=== PATIENT | female | born 1990 | race Caucasian/White ===

== ENCOUNTER 2018-10-06 20:09 | Outpatient (CLI) | payer BC, MEDICAID ==
[~2018-10-06] VITALS: Ht 157.5 cm; Wt 70.0 kg
[~2018-10-06 20:09] MED LIST: PREN-93 PO
[2018-10-06 20:22] VITALS: BP 119/67; PULSE 80; RESP 18
[2018-10-06 20:23] VITALS: BMI 28.2
[2018-10-06] MEDS ORDERED: ACETAMINOPHEN 500 MG TAB PO STA (21:20)
[2018-10-06] MEDS ORDERED: TERBUTALINE 1 MG/ML INJ SC ONE (22:30)
[2018-10-07] MEDS ORDERED: TERBUTALINE 1 MG/ML INJ SC ONE (01:00)
[2018-10-07] MEDS ORDERED: LACTATED RINGER'S 1,000 ML IV ONE (02:00)
[2018-10-07] MEDS ORDERED: LACTATED RINGER'S 1,000 ML IV SCH (02:00)
[2018-10-07 03:01] VITALS: BMI 57.5
[2018-10-07 03:02] VITALS: Ht 157.5 cm; Wt 70.0 kg
--- NOTE | 2018-10-07 04:30 | TRIAGE ---
OB Triage Datetime Report Generated by CPN: 10/07/2018 04:30 Datetime: 10/07/2018 03:40 Labor Evaluation Frequency: X2 Monitor Mode: External Duration (sec)2399: 80 Quality: Mild Pattern: Normal: <= 5 Contractions in 10 Minutes Resting Tone [place]: Relaxed Heart Rate FHR Baseline Rate: 130 Monitor Mode: External [place] Variability: Moderate 6-25 bpm Accelerations: 15X15 Decelerations: None Category: Category I Pain Assessment Pain Scale: 5 Pain Presence: Intermittent Pain Type: Cramping Pain Location: Abdomen Pain Goal: 5 Datetime: 10/07/2018 02:40 Labor Evaluation Frequency: x3 Monitor Mode: External Duration (sec)2399: 40-120 Quality: Mild Pattern: Normal: <= 5 Contractions in 10 Minutes Resting Tone [place]: Relaxed Heart Rate FHR Baseline Rate: 130 Monitor Mode: External [place] Variability: Moderate 6-25 bpm Accelerations: 15X15 Decelerations: None Category: Category I Datetime: 10/07/2018 01:49 Vaginal Exam Membrane Status: Intact Datetime: 10/07/2018 01:40 Labor Evaluation Frequency: occas Monitor Mode: External Duration (sec)2399: 40-120 Quality: Mild Pattern: Normal: <= 5 Contractions in 10 Minutes Resting Tone [place]: Relaxed Heart Rate FHR Baseline Rate: 135 Monitor Mode: External [place] Variability: Moderate 6-25 bpm Accelerations: 15X15 Decelerations: None Category: Category I Pain Assessment Pain Scale: 6 Pain Presence: Intermittent Pain Type: Cramping Pain Location: Abdomen Pain Goal: 5 Datetime: 10/07/2018 00:40 Labor Evaluation Frequency: x2 Monitor Mode: External Duration (sec)2399: 30-70 Quality: Mild Pattern: Normal: <= 5 Contractions in 10 Minutes Resting [place]one [place]: Relaxed Heart Rate FHR Baseline Rate: 130 Monitor Mode: External [place] Variability: Moderate 6-25 bpm Accelerations: 15X15 Decelerations: None Category: Category I Pain Assessment Pain Scale: 3 Pain Presence: Intermittent Pain Type: Cramping Pain Location: Abdomen Pain Assessment Comments: states pain has improved but still feels some ucs q 15 min Datetime: 10/06/2018 23:40 Labor Evaluation Frequency: occas Monitor Mode: External Duration (sec)2399: 30-40 Quality: Mild Pattern: Normal: <= 5 Contractions in 10 Minutes Resting [place]one [place]: Relaxed Heart Rate FHR Baseline Rate: 130 Monitor Mode: External [place] Variability: Moderate 6-25 bpm Accelerations: 15X15 Decelerations: None Category: Category I Datetime: 10/06/2018 22:40 Labor Evaluation Frequency: IRREG Monitor Mode: External Duration (sec)2399: 40-90 Quality: Mild Pattern: Normal: <= 5 Contractions in 10 Minutes Resting Tone [place]: Relaxed Heart Rate FHR Baseline Rate: 145 Monitor Mode: External [place] Variability: Moderate 6-25 bpm Accelerations: 15X15 Decelerations: None Category: Category I Pain Assessment Pain Scale: 6 Pain Presence: Intermittent Pain Type: Cramping Pain Location: Abdomen Pain Goal: 5 Datetime: 10/06/2018 21:40 Labor Evaluation Frequency: OCCAS Monitor Mode: External Duration (sec)2399: 30-40 Quality: Mild Pattern: Normal: <= 5 Contractions in 10 Minutes Resting [place]one [place]: Relaxed Heart Rate FHR Baseline Rate: 140 Monitor Mode: External [place] Variability: Moderate 6-25 bpm Accelerations: 15X15 Decelerations: None Category: Category I Datetime: 10/06/2018 20:30 Comments: U/S AT BEDSIDE Datetime: 10/06/2018 20:29 Labor Evaluation Frequency: 0 Monitor Mode: External Resting [place]one [place]: Relaxed Heart Rate FHR Baseline Rate: 145 Monitor Mode: External [place] Variability: Moderate 6-25 bpm Accelerations: 15X15 Decelerations: None Category: Category I Datetime: 10/06/2018 20:23 EGA: 28.1 Datetime: 10/06/2018 20:19 Assessment Type: Triage Maternal Assessment Level of Consciousness: Keenly Alert, Responsive DTR's/Clonus: DTRs 2+; No Clonus Headache: Denies Blurred Vision: No Respiratory Effort: Unlabored; Regular Rhythm; Equal Expansion Breath Sounds, Left: Clear and Equal Breath Sounds, Right: Clear and Equal Nausea/Vomiting: Denies RUQ Epigastric Pain: Denies Lower Extremities Edema: None Degree: None Upper Extremities Edema: None Degree: None Facial Edema: None Fall Risk Assessment History of Falling: (0) No Secondary Diagnosis: (0) No Ambulatory Aid: (0) Bedrest/Nurse Assist IV Therapy: (0) No Gait: (0) Normal/Bedrest/Immobile Mental Status: (0) Oriented to Own Ability Fall Score: 0 Fall Risk Score Definition: No Risk: No action required Datetime: 10/06/2018 20:18 Time of Arrival: 10/06/2018 20:00 Arrived By: Wheelchair Arrived From: Home Chief Complaint: ucs Movement: Present Contractions: Irregular Contractions: 5-15 min Rupture of Membranes: Denies Vaginal Bleeding: None Vaginal Discharge: Denies Recent Sexual Intercouse: Denies Abdominal Trauma: Not Applicable Patient Complaints: Contractions Time Provider Notified: 10/06/2018 20:20 Provider Notified: ARDALAN Datetime: 10/06/2018 20:17 Maternal Assessment Level of Consciousness: Keenly Alert, Responsive DTR's/Clonus: DTRs 2+ Headache: Denies Blurred Vision: No Nausea/Vomiting: Denies RUQ Epigastric Pain: Denies Facial Edema: None Pain Assessment Pain Scale: 7 Pain Presence: Intermittent Pain Type: Cramping Pain Location: Abdomen Pain Goal: 5 Pain Relief Measures: Comfort Measures Pain Assessment Comments: STATES PAIN IS TOLERABLE
--- NOTE | 2018-10-07 04:42 | TRIAGE ---
OB Triage Datetime Report Generated by CPN: 10/07/2018 04:42 Datetime: 10/07/2018 04:31 Frequency: X1 Monitor Mode: External Duration (sec)2399: 80 Quality: Mild Pattern: Normal: <= 5 Contractions in 10 Minutes Resting Tone [place]: Relaxed FHR Baseline Rate: 135 Monitor Mode: External [place] Variability: Moderate 6-25 bpm Accelerations: 15X15 Decelerations: None Category: Category I Pain Scale: 3 Pain Presence: Intermittent Pain Type: Cramping Pain Location: Abdomen Pain Goal: 3 Datetime: 10/06/2018 20:23 EGA: 28.1 Datetime: 10/06/2018 20:19 Fall Score: 0 Fall Risk Score Definition: No Risk: No action required
--- NOTE | 2018-10-07 04:49 | TRIAGE ---
OB Triage Datetime Report Generated by CPN: 10/07/2018 04:49 Datetime: 10/06/2018 20:18 Time Contractions Began: 10/06/2018 07:00 Initial Plan: NST, CALL MD FOR ORDERS
--- NOTE | 2018-10-07 11:16 | PN ---
Triage Information Date/Time Late entry note for exam done in October 06, 2018 Reason for visit: Uterine contractions Weeks of Gestation 28 weeks and 1 day /Para 2 para 0 Diabetes: none Hypertention: none Additional information 28-year-old G2, P0 with IUP at 28 weeks and 1 day recently arrived from [facility] presented to triage with complaint of uterine contractions. She had 2 visits with her OB clinic in [place]. The first visit in early and the second visit today. Size appears to be less than dates as well. Patient denies any leaking of fluid, vaginal bleeding or decreased movement. No records or labs are available. Patient noted to have frequent contraction initially when arrived to triage. Objective Vital Signs Date Temp Pulse Resp B/P (MAP) Pulse Ox O2 O2 Flow FiO2 Time Delivery Rate 10/06/18 97.9 80 18 119/67 Room Air 20:22 (84) Intake and Output 10/06/18 10/06/18 10/07/18 1515:00 23:00 07:00 IntakeIntake Total 1150 ml OutputOutput Total 800 ml BalanceBalance 350 ml Heart Rate: 130's Heart Rate Comments Category 1 and appropriate gestational age Contractions irregular noted Patient noticed to have contractions.Denies any LOF or vaginal bleeding. Denies any dysuria, Urinalysis is negative Results/Medications Result Diagram: 10/06/182141 Results 24 hrs Laboratory Tests Test 10/06/18 20:20 10/06/18 21:42 Urine Color YELLOW Urine Clarity SLIGHTLY CLOUDY A Urine pH 6.0 Urine Specific [place] 1.028 Urine Ketones NEGATIVE Urine Nitrite NEGATIVE Urine Bilirubin NEGATIVE Urine Urobilinogen NEGATIVE Urine Leukocyte Esterase 1+ H Urine Microscopic RBC 1 Urine Microscopic WBC 5 Urine Squamous Epithelial Cells FEW Urine Bacteria FEW A Urine Mucus FEW A Urine Hemoglobin NEGATIVE Urine Glucose NEGATIVE Urine Total Protein NEGATIVE White Blood Count 6.3 Red Blood Count 4.01 L Hemoglobin 11.0 L Hematocrit 33.0 L Mean Corpuscular Volume 82.3 Mean Corpuscular Hemoglobin 27.4 L Mean Corpuscular Hemoglobin Concent 33.3 Red Cell Distribution Width 13.4 Platelet Count 237 Mean Platelet Volume 10.9 H Immature Granulocytes % 0.600 H Neutrophils % 64.5 Lymphocytes % 24.9 Monocytes % 8.8 Eosinophils % 1.0 Basophils % 0.2 Nucleated Red Blood Cells % 0.0 Immature Granulocytes # 0.040 H Neutrophils # 4.1 Lymphocytes # 1.6 Monocytes # 0.6 Eosinophils # 0.1 Basophils # 0.0 Nucleated Red Blood Cells # 0.0 Hemoglobin A1c 5.1 Hepatitis B Surface Antigen NEGATIVE Hepatitis C Antibody NEGATIVE Imaging Results PROCEDURE: Limited obstetric ultrasound with endovaginal scanning CLINICAL INDICATION: labor. Assess cervical length and patency TECHNIQUE: Endovaginal scanning of the cervix was performed COMPARISON: 10/06/2018 FINDINGS: The cervix measures 3.4 cm in length. The visualized portion is closed. IMPRESSION: Closed cervix measuring 3.4 cm in length. Disposition: Discharge Assessment/Plan IUP at 28 weeks and 1 day contraction, likely related to dehydration. Resolved after hydration and to dose of terbutaline. Cervical length remained stable after repeating post hydration and terbutaline. Patient feels improvement. She discharged home in stable condition. labs was drawn. OB ultrasound for growth done. Estimated weight 85 percentile. Patient was advised to have a follow-up within 24 to 48 hours with primary OB office or sooner as needed. Strict labor precautions kick count and follow-up with OB office discussed with patient. All questions were answered to patient's best satisfaction patient verbalized understanding. MO CORRIGAN MD Oct 07, 2018 10:54
== END 2018-10-07 04:35 | disposition home or self-care (01) ==
LOC: OBT 20:09 → L-D 20:12 → OBT 10-07 04:35
PROVIDERS: ATTEND Obstetrics & Gynecology
DX: O60.03 Preterm labor without delivery, third trimester (principal); Z3A.28 28 weeks gestation of pregnancy
CPT/HCPCS: 36415; 76815; 76817; 76818; 81001; 83036; 85025; 86592; 86762; 86803; 86850; 86900; 86901; 87086; 87340; 87591; 96360; 96361; 96372; J3105; J7120; Z7500; Z7610; G0463

== ENCOUNTER 2018-10-09 12:03 | Outpatient (CLI) | payer BC ==
[~2018-10-09] VITALS: Ht 162.6 cm; Wt 70.7 kg
[2018-10-09 12:53] VITALS: Ht 162.6 cm; Wt 70.7 kg
[2018-10-09 12:54] VITALS: BP 111/69; PULSE 93; RESP 18
[2018-10-09] MEDS: LACTATED RINGER'S 1,000 ML IV SCH ×2 (13:33→18:44)
--- NOTE | 2018-10-09 16:25 | PN ---
Triage Information Date/Time Reason for visit: Nausea vomiting and diarrhea and occasional contractions Weeks of Gestation Patient is a 28-year-old 3 para 2 at 28 weeks and 4 days of gestation with estimated date of delivery December 28, 2018 Patient is here with chief complaint of nausea and vomiting and watery and foul- smelling diarrhea for the last 3 days She also reports occasional contractions Patient reports positive movement, denies vaginal bleeding or leaking fluid Patient reports she just returned from [facility] 5 days ago While she was in [facility] she had scabies and was hospitalized for a kidney infection which she received antibiotics /Para 3 para 2 Diabetes: none Hypertention: none Objective Vital Signs Date Temp Pulse Resp B/P (MAP) Pulse Ox O2 O2 Flow FiO2 Time Delivery Rate 10/09/18 98.3 93 18 111/69 12:54 (83) Heart Rate: 140's Heart Rate Comments heart rate tracing category 1 Contractions: >10 Minutes Apart Results/Medications Result Diagram: 10/09/18 1402 10/09/18 1402 Results 24 hrs Laboratory Tests Test 10/09/18 13:45 10/09/18 14:02 Urine Color TK Urine Clarity SLIGHTLY CLOUDY A Urine pH 5.0 Urine Specific [place] 1.031 H Urine Ketones NEGATIVE Urine Nitrite NEGATIVE Urine Bilirubin NEGATIVE Urine Urobilinogen NEGATIVE Urine Leukocyte Esterase TRACE A Urine Microscopic RBC 0 Urine Microscopic WBC 3 Urine Squamous Epithelial Cells MODERATE Urine Amorphous Crystals FEW A Urine Bacteria FEW A Urine Mucus MODERATE Urine Hemoglobin NEGATIVE Urine Glucose NEGATIVE Urine Total Protein 1+ H White Blood Count 8.7 # Red Blood Count 4.35 Hemoglobin 11.8 L Hematocrit 36.1 L Mean Corpuscular Volume 83.0 Mean Corpuscular Hemoglobin 27.1 L Mean Corpuscular Hemoglobin Concent 32.7 Red Cell Distribution Width 13.3 Platelet Count 226 Mean Platelet Volume 10.8 H Immature Granulocytes % 0.200 Neutrophils % 80.3 H Lymphocytes % 13.6 L Monocytes % 5.6 Eosinophils % 0.2 Basophils % 0.1 Nucleated Red Blood Cells % 0.0 Immature Granulocytes # 0.020 Neutrophils # 7.0 Lymphocytes # 1.2 Monocytes # 0.5 Eosinophils # 0.0 Basophils # 0.0 Nucleated Red Blood Cells # 0.0 Sodium Level 134 L Potassium Level 4.0 Chloride Level 104 Carbon Dioxide Level 22 Anion Gap 8 Blood Urea Nitrogen 9 Creatinine 0.45 Est Glomerular Filtrat Rate mL/min > 60 Glucose Level 91 Calcium Level 9.7 Total Bilirubin 0.4 Direct Bilirubin 0.00 Indirect Bilirubin 0.4 Aspartate Amino Transf (AST/SGOT) 19 Alanine Aminotransferase (ALT/SGPT) 22 Alkaline Phosphatase 103 Total Protein 7.4 Albumin 3.8 Globulin 3.60 H Albumin/Globulin Ratio 1.05 Medications Current Medications Lactated Ringer's 1,000 ml @ 125 mls/hr Q8H IV Last administered on 10/09/18at 13:33; Admin Dose 125 MLS/HR; Start 10/09/18 at 13:30 Imaging Results PROCEDURE: US OB biophysical profile. Ultrasound cervix CLINICAL INDICATION: decreased movements, labor TECHNIQUE: Multiple sonographic images of the pelvis were obtained. In addition, transvaginal images of the cervix were obtained. The images were reviewed on a PACS workstation. COMPARISON: 10/07/18 FINDINGS: The cervix measures 3.6 cm in length. There is a single live intrauterine gestation. Cardiac activity is present with 140 beats per minute. There is a vertex presentation. The placenta is posterior. There is no evidence of placental abruption. DEMAR = 12 cm. Biophysical profile: movement 2/2 tone 2/2. breathing 2/2 DEMAR 2/2 Total 10/07 RPTAT: AA . IMPRESSION: Normal biophysical profile. Cervix measures 3.6 cm in length. .Bryant Slaughter MD, MD Date Time Electronically viewed and signed by .Bryant Slaughter MD, MD on 10/09/2018 13:58 .S/ CC: ROXANN KILLIAN MD [id number] PROCEDURE: US Abdomen and retroperitoneal complete. CLINICAL INDICATION: Flank pain TECHNIQUE: Multiple real-time images were acquired of the patient's abdomen and retroperitoneum utilizing a high resolution transducer. COMPARISON: None FINDINGS: The liver demonstrates increased echogenicity. The liver is normal in size and no focal solid lesions are seen. The portal vein is patent with normal direction of flow. No intrahepatic biliary dilatation is seen. The liver measures 17.9 cm in length. The patient is status post cholecystectomy. The common bile duct measures 3 mm in maximal dimension. The pancreas is not well seen due to overlying bowel gas. The spleen was not imaged by the technologist. No free fluid is identified. The kidneys are normal in size, and demonstrate normal cortical echogenicity and cortical thickness. The right kidney measures 12 cm. The left kidney measures 12.1 cm. There is no evidence of hydronephrosis. There are no kidney stones. The urinary bladder is normal. RPTAT: AA IMPRESSION: Fatty infiltration of the liver. Status post cholecystectomy. No evidence of hydronephrosis. Spleen not included in the study. .Bryant Slaughter MD, MD Date Time Electronically viewed and signed by .Bryant Slaughter MD, on 10/09/2018 16:30 .S/ CC: ROXANN KILLIAN MD [id number] Disposition: Discharge Assessment/Plan Labs within normal limits Abdominal ultrasound within normal limits Urine culture was sent Stool was sent for culture and to rule out parasites Patient received IV fluid hydration Patient received terbutaline x1 dose Prescription for Flagyl was given kick count instructions were given Labor precautions were given Patient was instructed to follow-up with primary care physician and her [facility]TER in 1 to 2 days ROXANN KILLIAN MD Oct 09, 2018 16:25
[2018-10-09] MEDS ORDERED: TERBUTALINE 1 MG/ML INJ SC ONE (18:30)
--- NOTE | 2018-10-09 20:01 | PN ---
Date/Time of Note Date/Time of Note DATE: 10/09/18 TIME: 19:59 OB Subjective Subjective Subjective 28 year old IUP 28 06/06 with nausea, vomithig recieved IV hydartion tollerated clear liquis diet no more loose stool not feeling contractionts CL 3.6 will d/c home with percationts 1 week outpatient follow up ABHI ZUÑIGA MD Oct 09, 2018 20:01
--- NOTE | 2018-10-09 20:51 | TRIAGE ---
OB Triage Datetime Report Generated by CPN: 10/09/2018 20:50 Datetime: 10/09/2018 19:53 Stage of : OB Triage Labor Evaluation Frequency: X1 Monitor Mode: External Duration (sec)2399: 60 Pattern: Normal: <= 5 Contractions in 10 Minutes Resting Tone [place]: Relaxed Heart Rate FHR Baseline Rate: 160 Monitor Mode: External [place] Variability: Moderate 6-25 bpm Accelerations: 15X15 Decelerations: None Category: Category I Pain Assessment Pain Scale: 0 Pain Type: N/A Datetime: 10/09/2018 19:14 Stage of : OB Triage Labor Evaluation Frequency: x0 Monitor Mode: External Duration (sec)2399: x0 Pattern: Normal: <= 5 Contractions in 10 Minutes Resting Tone [place]: Relaxed Heart Rate FHR Baseline Rate: 150 Monitor Mode: External [place] Variability: Moderate 6-25 bpm Accelerations: 15X15 Decelerations: Variable Category: Category II Comments: appropriate for gestational age Datetime: 10/09/2018 18:16 Stage of : OB Triage Datetime: 10/09/2018 17:56 Labor Evaluation Frequency: 4-6 Monitor Mode: External Duration (sec)2399: 40-60 Quality: Mild Pattern: Normal: <= 5 Contractions in 10 Minutes Resting Tone [place]: Relaxed Heart Rate FHR Baseline Rate: 150 Monitor Mode: External [place] Variability: Moderate 6-25 bpm Accelerations: 10X10 Decelerations: None Category: Category I Pain Assessment Pain Scale: 1 Pain Presence: Intermittent Pain Type: Cramping Pain Location: Perineum Pain Goal: 3 Pain Relief Measures: Comfort Measures Datetime: 10/09/2018 17:05 Labor Evaluation Frequency: 0 Monitor Mode: External Pattern: Normal: <= 5 Contractions in 10 Minutes Resting Tone [place]: Relaxed Heart Rate FHR Baseline Rate: 145 Monitor Mode: External [place] Variability: Moderate 6-25 bpm Accelerations: 10X10 Decelerations: None Category: Category I Pain Assessment Pain Scale: 5 Pain Presence: Constant Pain Type: Cramping Pain Location: Abdomen Pain Goal: 3 Pain Relief Measures: Comfort Measures Datetime: 10/09/2018 15:59 Labor Evaluation Frequency: 6-7 Monitor Mode: External Duration (sec)2399: 50-70 Pattern: Normal: <= 5 Contractions in 10 Minutes Resting Tone [place]: Relaxed Heart Rate FHR Baseline Rate: 145 Monitor Mode: External [place] Variability: Moderate 6-25 bpm Accelerations: None Decelerations: None Pain Assessment Pain Scale: 6 Pain Presence: Intermittent Pain Type: Cramping Pain Location: Perineum Pain Goal: 3 Pain Relief Measures: Comfort Measures Datetime: 10/09/2018 15:20 Stage of : OB Triage Datetime: 10/09/2018 15:02 Labor Evaluation Frequency: 0 Monitor Mode: External Pattern: Normal: <= 5 Contractions in 10 Minutes Resting Tone [place]: Relaxed Heart Rate FHR Baseline Rate: 145 Monitor Mode: External [place] Variability: Moderate 6-25 bpm Accelerations: None Decelerations: None Pain Assessment Pain Scale: 6 Pain Presence: Intermittent Pain Type: Cramping Pain Goal: 3 Pain Relief Measures: Comfort Measures Datetime: 10/09/2018 13:44 Labor Evaluation Frequency: 5-7 Monitor Mode: External Duration (sec)2399: 30-50 Quality: Mild Pattern: Normal: <= 5 Contractions in 10 Minutes Resting Tone [place]: Relaxed Heart Rate FHR Baseline Rate: 155 Monitor Mode: External [place] Variability: Moderate 6-25 bpm Accelerations: None Pain Assessment Pain Scale: 7 Pain Presence: Intermittent Pain Type: Cramping Pain Location: Perineum Pain Goal: 3 Pain Relief Measures: Comfort Measures Datetime: 10/09/2018 13:18 Stage of : OB Triage Datetime: 10/09/2018 12:49 Stage of : OB Triage Assessment Type: Triage Maternal Assessment Level of Consciousness: Keenly Alert, Responsive DTR's/Clonus: DTRs 2+; No Clonus Headache: Denies Blurred Vision: No Respiratory Effort: Unlabored; Regular Rhythm; Equal Expansion Breath Sounds, Left: Clear and Equal Breath Sounds, Right: Clear and Equal Nausea/Vomiting: Denies RUQ Epigastric Pain: Denies Facial Edema: None Temperature Route: Axillary Fall Risk Assessment History of Falling: (0) No Secondary Diagnosis: (0) No Ambulatory Aid: (0) Bedrest/Nurse Assist IV Therapy: (0) No Gait: (0) Normal/Bedrest/Immobile Mental Status: (0) Oriented to Own Ability Fall Score: 0 Fall Risk Score Definition: No Risk: No action required Labor Evaluation Frequency: 0 Monitor Mode: External Pattern: Normal: <= 5 Contractions in 10 Minutes Resting Tone [place]: Relaxed Heart Rate FHR Baseline Rate: 155 Monitor Mode: External [place] Variability: Moderate 6-25 bpm Accelerations: None Decelerations: None Pain Assessment Pain Scale: 7 Pain Presence: Intermittent Pain Type: Cramping Pain Location: Perineum Pain Goal: 3 Pain Relief Measures: Comfort Measures Datetime: 10/09/2018 12:47 Time of Arrival: 10/09/2018 11:53 EGA: 28.4 Arrived By: Ambulatory Arrived From: Home Chief Complaint: C/O NAUSEA/VOMITING X 1 DAY ALONG WITH DIARRHEA AND UC'S PT RECENTLY JUST CAME BACK FROM [facility] 09/28/2018 Movement: Present Contractions: Irregular Rupture of Membranes: Denies Vaginal Bleeding: None Vaginal Discharge: Denies Recent Sexual Intercouse: Denies Abdominal Trauma: Not Applicable Patient Complaints: Cramping; Nausea; Vomiting Time Provider Notified: 10/09/2018 13:18 Provider Notified: MARIA D Initial Plan: MONITOR, CBC,CMP,CL, U/A,BPP,STOOL SAMPLE, TERB, IV HYDRATION Datetime: 10/06/2018 20:23 EGA: 28.1 Datetime: 10/06/2018 20:19 Fall Score: 0 Fall Risk Score Definition: No Risk: No action required
== END 2018-10-09 20:31 | disposition home or self-care (01) ==
LOC: L-D 12:03 → OBT 12:03
PROVIDERS: ATTEND Obstetrics & Gynecology Gynecology
DX: O21.2 Late vomiting of pregnancy (principal); O26.893 Other specified pregnancy related conditions, third trimester; R10.9 Unspecified abdominal pain; Z3A.28 28 weeks gestation of pregnancy
CPT/HCPCS: 36415; 76705; 76817; 76818; 80053; 81001; 85025; 87045; 87086; 96360; 96361; 96372; J3105; J7120; Z7500; G0463